=== PATIENT | male | born 1975 | race African-American/Black ===

== ENCOUNTER 2017-02-21 21:35 | Emergency (ER) | payer MEDICAID ==
[~2017-02-21] VITALS: Ht 175.3 cm; Wt 62.3 kg
[2017-02-22 03:31] VITALS: BP 125/68
[2017-02-22] MEDS ORDERED: IBUPROFEN 800 MG TAB PO ONE (03:45)
[2017-02-22] MEDS ORDERED: TETRACAINE HCL 0.5% OPTH(EYE) SOLN 4ML LEFTEYE ONE (04:15)
[2017-02-22] MEDS ORDERED: cefTRIAXone SOD 1,000 MG VL IM ONE (04:30)
== END 2017-02-22 04:47 | disposition home or self-care (01) ==
LOC: ER 21:35
DX: H60.92 Unspecified otitis externa, left ear (principal)
CPT/HCPCS: 96372; 99283; J0696